=== PATIENT | female | born 1970 | race Caucasian/White ===

== ENCOUNTER 2023-04-15 15:20 | Outpatient (REF) | payer OTHER, SELFPAY | END 2023-04-15 15:21 | disposition home or self-care (01) | LOC: HO.MAMMO 15:20 | PROVIDERS: PCP Internal Medicine Medical Oncology; Visit Provider Internal Medicine Medical Oncology | DX: Z12.31 Encounter for screening mammogram for malignant neoplasm of breast (principal) | CPT/HCPCS: 77063; 77067 ==

== ENCOUNTER → 2023-04-15 15:30 | Outpatient (BNV) | payer OTHER, SELFPAY | PROVIDERS: PCP Internal Medicine Medical Oncology; Visit Provider Radiology Diagnostic Radiology | DX: Z12.31 Encounter for screening mammogram for malignant neoplasm of breast (principal) | CPT/HCPCS: 77063; 77067 ==